=== PATIENT | male | born 1970 | race Caucasian/White ===

== ENCOUNTER 2017-02-15 01:37 | Emergency (ER) | payer OTHER ==
[~2017-02-15] VITALS: Ht 182.9 cm; Wt 83.9 kg
[2017-02-15] MEDS ORDERED: prozac (01:43)
--- NOTE | 2017-02-15 02:18 | NUR ---
Patient discharged to police custody in stable conditon. Written and verbal after care instructions given. Patient verbalizes understanding of instructions.
== END 2017-02-15 02:21 ==
LOC: ER 01:41
DX: S30.0XXA Contusion of lower back and pelvis, initial encounter (principal); I10 Essential (primary) hypertension; R51 Headache; F90.9 Attention-deficit hyperactivity disorder, unspecified type; W18.30XA Fall on same level, unspecified, initial encounter; Y92.89 Other specified places as the place of occurrence of the external cause; Y93.89 Activity, other specified; Y99.8 Other external cause status
CPT/HCPCS: 70450; A4663

== ENCOUNTER 2020-05-07 11:28 | Emergency (ER) | payer MEDICAID, OTHER ==
[~2020-05-07] VITALS: Ht 188 cm; Wt 77.1 kg
[~2020-05-07 11:28] MED LIST: prozac
[2020-05-07] MEDS ORDERED: IV NS 1000 ML 1,000 ML IV ONE (11:45)
--- NOTE | 2020-05-07 12:02 | NUR ---
Dr Bustillo at the bedside for MSE.
--- NOTE | 2020-05-07 12:09 | NUR ---
COVID nasal swabs collected and sent to LAB.
[2020-05-07 12:15] LABS: HEMATOCRIT 37.5 % (36.7-47.1); WHITE BLOOD COUNT (AUTO) 4.2 K/uL (3.6-10.2)
[2020-05-07 12:19] LABS: BASOPHILS % (AUTO) 1.2 % (0.0-2.0); EOSINOPHILS # (AUTO) 0.2 K/uL (0.0-0.7); EOSINOPHILS % (AUTO) 4.5 % (0.0-7.0); HEMOGLOBIN 12.7 g/dL (12.5-16.3); LYMPHOCYTES # (AUTO) 0.9 K/uL (20.0-40.0); LYMPHOCYTES % (AUTO) 21.3 % (20.5-51.5); MEAN CORPUSCULAR HEMOGLOBIN 30.9 uug (23.8-33.4); MEAN CORPUSCULAR HGB CONC 34 g/dL (32.5-36.3); MONOCYTES # (AUTO) 0.4 K/uL (2.0-10.0); MONOCYTES % (AUTO) 8.5 % (0.0-11.0); NEUTROPHILS # (AUTO) 2.7 K/uL (1.8-8.9); NEUTROPHILS % (AUTO) 64.5 % (38.5-71.5); PLATELET COUNT (AUTO) 239 K/uL (152-348); RED BLOOD CELL COUNT(AUTO) 4.12 MIL/uL (4.06-5.63)
[2020-05-07 12:21] LABS: CREATININE 0.8 mg/dL (0.6-1.3); POTASSIUM 3.5 mmol/L (3.5-5.1)
[2020-05-07 12:33] LABS: BILIRUBIN,TOTAL 0.4 mg/dL (0.2-1.0)
--- NOTE | 2020-05-07 12:53 | NUR ---
Patient is resting comfortably in bed with eyes closed, NAD noted.
--- NOTE | 2020-05-07 14:17 | NUR ---
IV removed. Catheter intact and site benign. Pressure and 4x4 gauze applied to site. No bleeding noted.
[2020-05-07 14:18] VITALS: BP 137/80
--- NOTE | 2020-05-07 14:19 | NUR ---
Patient discharged to home in stable condition. Written and verbal after care instructions given. Patient verbalizes understanding of instructions. Stressed follow up or return to ER for worsening s/s.
== END 2020-05-07 14:19 | disposition home or self-care (01) ==
LOC: ER 11:28
DX: R19.7 Diarrhea, unspecified (principal); Z20.822 Contact with and (suspected) exposure to COVID-19; I10 Essential (primary) hypertension; F90.9 Attention-deficit hyperactivity disorder, unspecified type
CPT/HCPCS: 36415; 71045; 80053; 83605; 84145; 85025; 87040 ×2; 87426; 96360; 99284; U0003; A4663; J7030